=== PATIENT | male | born 1955 | race Caucasian/White ===

== ENCOUNTER 2016-04-21 12:29 | Emergency (ER) | payer OTHER ==
[~2016-04-21] VITALS: Ht 167.6 cm; Wt 62.3 kg
[2016-04-21 12:52] VITALS: BP 152/96; PULSE 75; RESP 16; O2SAT 98
--- NOTE | 2016-04-21 13:35 | DRSVH ---
PROCEDURE: X-RAY CHEST, TWO VIEWS ([id number]) INDICATIONS: COUGH/FLU TECHNIQUE: 2 views of the chest were acquired. COMPARISON: None. FINDINGS: Surgical changes and devices: None. Lungs and pleura: No pleural effusions or pneumothorax. Lungs are clear. The lung volumes are larg e and the diaphragms are flattened suggesting emphysema. Mediastinum: Mediastinal contours are normal. Heart size is normal. Bones and chest wall: No suspicious bony abnormalities. Soft tissues appear unremarkable. IMPRESSION: No acute cardiopulmonary findings. Emphysematous change. Dictated by: Kristina Casarez M.D. on 04/21/2016 at 13:33 Approved by: Kristina Casarez M.D. on 04/21/2016 at 13:34
--- NOTE | 2016-04-21 15:12 | ED.REPORT ---
HPI-General Illness Date of Service Apr 21, 2016 ED Provider: Sidney Kauffman MD 60 year old male presents to the ER accompanied by his complaining of persistent cough with white sputum since July-August 2015. reports that the patient just got over the flu last week. She states that the cough is extremely violent. He is an everyday smoker, 10 self-rolled cigarettes daily which he alleges is equivalent to about 4-5 cigarettes. Patient denies chest pain, history of asthma, COPD, or blood clots. Nursing Notes Stated Complaint: WORSENING FLU SYMPTOMS Chief Complaint: FLU/Cold Symptoms Nursing Notes Reviewed: Yes Allergies: Coded Allergies: No Known Allergies (Unverified , 04/21/16) Scheduled Prednisone (PredniSONE) 20 Mg Tablet 40 MG PO DAILY Scheduled PRN Benzonatate (Tessalon Perle) 100 Mg Capsule 100 MG PO TID PRN PRN For Cough General Time Seen by MD: 15:08 Chief Complaint Cough Hx Obtained From: Patient, Spouse Arrived By: Walk-in Sudden in Onset?: No Onset Occurred: More than a week ago... (>6 months) Symptom Duration: Since onset Pertinent Negative: Pt denies other symptoms Context Related History: Denies Asthma, Denies COPD Past Medical History Past Medical History Denies: Asthma, COPD Smoking History Current Every Day Smoker Social History Other Social History: Good social support, Ambulatory Status Independent Review of Systems Full Review of Systems Constitutional: Denies: Chills, Fever Respiratory: Reports: Prod cough, white Cardiovascular: Denies: Chest pain GI: Denies: Nausea, Vomiting Complete sys rev & neg: except as marked. Physical Exam Vital Signs Vital Signs Date Time Temp Pulse Resp B/P Pulse Ox O2 Delivery O2 Flow Rate FiO2 04/21/16 16:19 150/78 04/21/16 15:28 37.2 70 16 131/74 04/21/16 12:52 36.7 75 16 152/96 98 Room Air Initial VS: Reviewed General/Constitutional: Well-developed, Well-nourished Head / Eyes: Atraumatic, Normocephalic Neck: Supple, Non-tender, Full range of motion Extremities: Vascular intact, Neuro intact, No swelling, No tenderness Skin: Warm, Dry, No cyanosis Neurologic: Alert, Oriented, Nonfocal Psychiatric: Mood/affect normal, Behavior normal, Normal thought content Respiratory / Chest: No chest tenderness, No chest wall deformity Diminished Breath Sounds: Positive: Decreased bilateral Trauma - Chest Specific: Negative: Chest wall deformity L Slightly coarse breath sounds, no wheezing. Cardiovascular: Heart rate NL, Regular rhythm, Heart sounds NL, Cap refill not delayed, Peripheral circulation NL Interpretation & Diagnostics Lab Results Interpretation Result Diagram: 04/21/16 1537 04/21/16 1537 Test 04/21/16 15:37 White Blood Count 7.5th/mm3 (3.8-10.1) Red Blood Count 4.97mil/mm3 (4.40-5.80) Hemoglobin 17.5g/dL (13.8-17.2) Hematocrit 48.3% (41.0-50.0) Mean Corpuscular Volume 97.2fL (81-100) Mean Corpuscular Hemoglobin 35.2pg (27.0-35.0) Mean Corpuscular Hemoglobin Concent 36.2% (32.0-37.0) Red Cell Distribution Width 11.7% (12.3-15.4) Platelet Count 183bil/L (150-400) Neutrophils (%) (Auto) 67.4% (40-74) Lymphocytes (%) (Auto) 22.4% (14-46) Monocytes (%) (Auto) 8.5% (4-12) Eosinophils (%) (Auto) 1.2% (0-5) Basophils (%) (Auto) 0.4% (0-3) Sodium Level 137mEq/L (134-144) Potassium Level 4.3mEq/L (3.5-5.2) Chloride Level 99mEq/L (97-108) Carbon Dioxide Level 24mmol/L (18-29) Blood Urea Nitrogen 10mg/dL (8-27) Creatinine 0.68mg/dL (0.76-1.27) Estimat Glomerular Filtration Rate 126mL/min (>59) Glucose Level 128mg/dL (60-99) Calcium Level 9.3mg/dL (8.5-10.1) Total Bilirubin 0.7mg/dL (0.0-1.2) Aspartate Amino Transf (AST/SGOT) 41U/L (0-50) Alanine Aminotransferase (ALT/SGPT) 46U/L (0-44) Alkaline Phosphatase 50U/L (25-160) Total Protein 7.3g/dL (6.4-8.4) Albumin 4.3g/dL (3.4-5.0) Hold Oliveros Top Tube Received (Received) X-Ray Chest Interpretation Chest Xray Interpretation: IMPRESSION: No acute cardiopulmonary findings. Emphysematous change. Dictated by: Kristina Casarez M.D. on 04/21/2016 at 13:33 Approved by: Kristina Casarez M.D. on 04/21/2016 at 13:34 View: AP & lat Interpretation / Wet Read by: Interpret - Radiologist Re-Eval/Medical Decision Med Decision/Clinical Course CXR normal Vital signs normal Source of Hx: Old records Time of Eval: 16:04 Re-Evaluation/Progress Note: Discussed physical examination findings, radiology results and plan to discharge. Patient is amenable to the plan. Return precautions given. All other questions addressed. Counseled Regarding: Diagnosis, Lab results, Need for follow-up, When/why to return to ED Discharge & Departure Departure Notes 60 year old male presents to the ER accompanied by his complaining of persistent cough with white sputum since July-August 2015. reports that the patient just got over the flu last week. She states that the cough is extremely violent. He is an everyday smoker. Here in emergency department patient is afebrile stable vital signs examination as above. Patient responded to albuterol. Chest x-ray demonstrated emphysematous changes. No focal pneumonia. Overall presentation most consistent with bronchitis/chronic smoking. Patient counseled to stop smoking. He was prescribed albuterol inhaler as well as a course of prednisone and Tessalon for cough. Patient was discharged in stable condition. Follow-up fracture precautions were reviewed in detail and he verbalized understanding and agreement with the plan. Primary Impression: Bronchitis Additional Impressions: Tobacco abuse Chronic cough Disposition: Home Discharge Condition All VS Reviewed: Yes Condition: Stable Patient Instructions: Acute Bronchitis (DC) Additional Instructions: Thank you for seeking care at emergency room. It is difficult for us to make definitive diagnoses in the ED but we believe that you are experiencing bronchitis. Our primary goal today in the ED was to evaluate you for any life-threatening conditions. Your evaluation was reassuring. You will be discharged with a prescription for albuterol inhaler, and 3 days of Prednisone. Please take as directed. You should follow-up with your primary doctor this week. You should return to the ED immediately if you develop worsening cough, shortness of breath, high fever, chills, nausea, vomiting, or any other concerning signs or symptoms. Thank you for letting us partake in your care today. Referrals: NOPCP (PCP) Scribe Attestation Portions of this note were transcribed by Ganga Gipson. I, Dr. Kauffman, personally performed the history, physical exam and medical decision-making; I reviewed and confirmed the accuracy of the information in the transcribed note. Signed by: Radnolph Meza, 04/21/2016 and 16:07 Sidney Kauffman MD Apr 21, 2016 15:12 GANGA GIPSON Apr 21, 2016 15:50
[2016-04-21 15:28] VITALS: BP 131/74; PULSE 70; RESP 16
[2016-04-21 15:56] LABS: BASOPHILS % (AUTO) 0.4 % (0-3); EOSINOPHILS % (AUTO) 1.2 % (0-5); MONOCYTES % (AUTO) 8.5 % (4-12); Mean Corpuscular Hemoglobin 35.2 pg (27.0-35.0); Mean Corpuscular Volume 97.2 fL (81-100); NEUTROPHILS % (AUTO) 67.4 % (40-74); Platelet Count 183 bil/L (150-400)
[2016-04-21] MEDS ORDERED: BENZ-12 PO (16:10)
[2016-04-21] MEDS ORDERED: PRE20 PO (16:10)
[2016-04-21] MEDS ORDERED: Albuterol HFA 60 Puff 8 Gm Inhaler INHALATION PRN (16:10)
[2016-04-21 16:19] VITALS: BP 150/78
== END 2016-04-21 16:21 | disposition home or self-care (01) ==
LOC: SED 12:29
DX: J40 Bronchitis, not specified as acute or chronic (principal); F17.210 Nicotine dependence, cigarettes, uncomplicated; R05 Cough